=== PATIENT | male | born 1945 | race Asian ===

== ENCOUNTER 2017-11-16 07:35 | Day surgery (SDC) | payer MEDICARE, OTHER ==
[~2017-11-16] VITALS: Ht 157.5 cm; Wt 56.4 kg
[~2017-11-16 07:35] MED LIST: AMLO-511 PO; RINGERS SOLUTION,LACTATED 500 ML IV ONE; THYR30 PO
[2017-11-16] MEDS ORDERED: LIDOCAINE HCL/PF 1% 2 ML VIAL INJ ONE (07:36)
[2017-11-16] MEDS ORDERED: EPINEPHrine 1:1,000 [1 MG/ML] AMP IM ONE (07:36)
[2017-11-16] MEDS ORDERED: POVIDONE-IODINE 10% 15 ML SOLUTION UD TP ONE (07:36)
[2017-11-16] MEDS ORDERED: NEOMYCIN/POLYMYXIN B/DEXAMETH 3.5 GM OPHTHALMIC OINTMENT OS ONE (07:36)
[2017-11-16] MEDS ORDERED: 0.9% SODIUM CHLORIDE 10 ML VIAL IVP ONE (07:36)
[2017-11-16] MEDS ORDERED: ACETYLCHOLINE CHLORIDE 1 EA INTRAOCULAR SOLUTION KIT IO ONE (07:36)
[2017-11-16] MEDS ORDERED: DEXAMETHASONE SOD PHOS 4 MG/ML VIAL IVP ONE (07:36)
[2017-11-16] MEDS ORDERED: TETRACAINE HCL VISCOUS 0.5% 5 ML OPHTHALMIC SOLUTION OS ONE (07:36)
[2017-11-16] MEDS ORDERED: BALANCED SALT 15 ML OPHTHALMIC IRRIG.SOLN OS ONE (07:36)
[2017-11-16] MEDS ORDERED: HYALURONATE SOD/CHONDROITIN SOD 0.5 ML VIAL IO ONE (07:36)
[2017-11-16] MEDS ORDERED: RINGERS SOLUTION,LACTATED 500 ML IV ONE (07:48)
[2017-11-16] MEDS ORDERED: CYCLOPENTOLATE HCL 1% 2 ML OPHTHALMIC SOLUTION ONE (07:50)
[2017-11-16] MEDS ORDERED: FLURBIPROFEN SODIUM 0.03% 2.5 ML OPHTHALMIC SOLUTION ONE (07:50)
[2017-11-16] MEDS ORDERED: TROPICAMIDE 1% 2 ML OPHTHALMIC SOLUTION ONE (07:50)
[2017-11-16] MEDS ORDERED: PHENYLEPHRINE HCL 2.5% 2 ML OPHTHALMIC SOLUTION ONE (07:50)
[2017-11-16] MEDS: CYCLOPENTOLATE HCL 1% 2 ML OPHTHALMIC SOLUTION OD SCH ×3 (08:28→08:38)
[2017-11-16] MEDS: FLURBIPROFEN SODIUM 0.03% 2.5 ML OPHTHALMIC SOLUTION OD SCH ×3 (08:28→08:37)
[2017-11-16] MEDS: TROPICAMIDE 1% 2 ML OPHTHALMIC SOLUTION OD SCH ×3 (08:28→08:37)
[2017-11-16] MEDS: PHENYLEPHRINE HCL 2.5% 2 ML OPHTHALMIC SOLUTION OD SCH ×3 (08:29→08:38)
[2017-11-16] MEDS ORDERED: FentaNYL CITRATE-PF 100 MCG/2 ML VIAL IVP ONE (12:00)
[2017-11-16] MEDS ORDERED: MIDAZOLAM HCL 2 MG/2 ML VIAL IVP ONE (12:00)
== END 2017-11-16 11:25 | disposition home or self-care (01) ==
LOC: SURGERY 07:35
PROVIDERS: ATTEND Ophthalmology
DX: H25.11 Age-related nuclear cataract, right eye (principal); I10 Essential (primary) hypertension; E03.9 Hypothyroidism, unspecified; Z85.3 Personal history of malignant neoplasm of breast; Z98.890 Other specified postprocedural states; Z79.899 Other long term (current) drug therapy
CPT/HCPCS: 66984; 93005; C1780; J0171; J1100; J2250; J3010; J3490; J7120